=== PATIENT | male | born 1960 | race Caucasian/White ===

== ENCOUNTER → 2019-10-28 | Outpatient (CLI) | payer OTHER | LOC: RAD 11:24 | DX: J45.909 Unspecified asthma, uncomplicated (principal); M25.78 Osteophyte, vertebrae ==

== ENCOUNTER → 2019-10-29 | Outpatient (CLI) | payer OTHER ==
--- NOTE | 2019-10-31 15:53 | SPIROMETRY ---
[facility] [place] [address] SPIROMETRY Name: RICARDO RECIO Room #: [facility] KEARA Marquez#: [id number] Admission: 10/29/19 Attend Phys: Moi Acuña MD Discharge: Date of : 60 Report #: [id number] THIS REPORT FOR: //name// >> SPIROMETRY: (BTPS) Height: in cm Weight: lbs kg Exam Date: PRE-RX POST-RX PRED BEST %PRED BEST %PRED %CHG FVC LITERS . . . . . . FEV1 LITERS . . . . . . FEV1/FVC % . . . . . . XXH21-03% L/Sec . . . . . . PEF L/SEC . . . . . . FEF50/FIF50 UNITLESS . . . . . . >> INTERPRETATION/IMPRESSION: CC: Moi Acuña MD Spirometry revealed mild airflow obstruction. There was no significant bronchodilator response. <ELECTRONICALLY SIGNED> By: Nick Linton MD 10/31/19 1553 Nick Lintno MD /nt
== END ==
LOC: PULREHAB 09:54
DX: J45.909 Unspecified asthma, uncomplicated (principal)